=== PATIENT | male | born 1995 | race Caucasian/White ===

== ENCOUNTER 2023-01-01 03:49 | Emergency (ER) | payer SELFPAY ==
[~2023-01-01] VITALS: Ht 167.6 cm; Wt 91.0 kg
[2023-01-01 03:53] VITALS: BP 127/83; PULSE 117; RESP 18; TEMP 98.1; O2SAT 100
== END 2023-01-01 05:57 ==
LOC: ER 03:49
DX: R68.89 Other general symptoms and signs (principal)
CPT/HCPCS: 99283